=== PATIENT | female | born 1970 | race Caucasian/White ===

== ENCOUNTER → 2018-04-14 | Outpatient (CLI) | payer OTHER ==
[2018-04-14 17:00] LABS: ADD MAN DIFF? NO
[2018-04-14 17:10] LABS: BASO % 1 % (0-3); EOS % 0 % (0-3); HEMATOCRIT 37.5 % (36.0-47.0); HEMOGLOBIN 11.8 g/dL (12.0-15.5); LYMPH # 2.9 x10^3/uL (1.0-4.8); LYMPH % 38 % (24-48); MEAN CORPUSCULAR HEMOGLOBIN 25 pg (25-35); MEAN CORPUSCULAR HGB CONC 32 g/dL (31-37); MEAN CORPUSCULAR VOLUME 80 fL (79-100); MONO # 0.4 x10^3/uL (0.0-1.1); MONO % 6 % (0-9); NEUT # 4.2 x10^3uL (1.8-7.7); NEUT % 56 % (31-73); PLATELET COUNT 239 x10^3/uL (140-400); RED BLOOD COUNT 4.67 x10^6/uL (3.50-5.40); RED CELL DISTRIBUTION WIDTH 16.7 % (11.5-14.5); WHITE BLOOD COUNT 7.6 x10^3/uL (4.0-11.0)
[2018-04-14 17:38] LABS: ALBUMIN/GLOBULIN RATIO 1.3 (1.0-1.7); ALK PHOS 76 U/L (46-116); ALT (SGPT) 23 U/L (14-59); ANION GAP 9 (6-14); AST (SGOT) 15 U/L (15-37); BLOOD UREA NITROGEN 19 mg/dL (7-20); BUN/CREATININE RATIO 17 (6-20); CALCIUM 9.6 mg/dL (8.5-10.1); CARBON DIOXIDE 28 mmol/L (21-32); CHLORIDE 103 mmol/L (98-107); CHOLESTEROL 182 mg/dL (0-200); CREATININE 1.1 mg/dL (0.6-1.0); GFR 53.2; GLUCOSE 97 mg/dL (70-99); HDLC 54 mg/dL (40-60); LDLC 96 mg/dL (0-100); NON-HDL CHOLESTEROL 128 mg/dL (0-129); POTASSIUM 4.1 mmol/L (3.5-5.1); SODIUM 140 mmol/L (136-145); TOTAL BILIRUBIN 0.4 mg/dL (0.2-1.0); TOTAL PROTEIN 7.2 g/dL (6.4-8.2); TRIGLYCERIDES 161 mg/dL (0-150); VLDLC 32 mg/dL (0-40)
[2018-04-14 17:51] LABS: CHOLESTEROL/HDL RATIO 3.4
[2018-04-15 00:15] LABS: ESTRADIOL LEVEL 72.1 pg/mL (.); FSH 35.4 mIU/mL (.); LUTEINIZING HORMONE 29.3 mIU/mL (.)
[2018-04-15 00:15] LABS: DHEA SO4 68.6 ug/dL (41.2-243.7); THYROXINE 5.7 ug/dL (4.5-12.0)
[2018-04-15 10:27] LABS: HEMOGLOBIN A1C 5.9 % (4.8-5.6)
== END | disposition home or self-care (01) ==
LOC: LAB 16:49
DX: Z13.1 Encounter for screening for diabetes mellitus (principal); E66.3 Overweight; G43.909 Migraine, unspecified, not intractable, without status migrainosus
CPT/HCPCS: 36415; 80053; 80061; 82306; 82627; 82670; 83001; 83002; 83036; 84402; 84403; 84436; 84443; 85025